=== PATIENT | male | born 1970 | race Caucasian/White ===

== ENCOUNTER 2017-09-25 12:56 | Inpatient (IN) ==
[2017-09-25] MEDS ORDERED: Isovue-370 500 ML INFUS..BTL IV ONE (13:33)
[2017-09-25] MEDS ORDERED: 0.9 % Sodium Chloride 1,000 ML IVC ONE (13:33)
[2017-09-25] MEDS ORDERED: Piperacillin/Tazobactam 3.375 GM in 0.9 % Sodium Chloride Mini Bag 100 ML IVPB ONE (13:36)
--- NOTE | 2017-09-25 13:39 | Emergency Department Note ---
Disposition Clinical Impression: Cellulitis of right thigh Disposition: Admitted As Inpatient Condition: Good Referrals: NONE,PCP [Non-Partnered Physician] - Forms: ED Satisfaction Letter General Adult HPI - General Chief complaint: ED Wound/Laceration Stated complaint: Abscess re-check Time Seen by Provider: 09/25/17 13:25 Source: patient Mode of arrival: ambulatory Limitations: no limitations Nursing Notes Reviewed: Yes Vital Signs Reviewed: Yes - History of Present Illness HPI Narrative: 47-year-old male with a past medical history of hypertension and hyperlipidemia. On Sunday (2 days ago) he presented to the emergency department due to an abscess on the right thigh with surrounding cellulitis. At that time he received a single dose of IV antibiotics, incision and drainage , and was placed on oral antibiotics. He notes he has had no improvement since then and has only had worsening. They minerva a line around the area of erythema on his leg and the erythema has passed this line. He denies having any fever. No nausea or vomiting. He only has pain with moving his leg. The redness does not extend to his groin. No prior history of abscess or cellulitis. He is not immunocompromised does not have AIDS, diabetes. Pain Scale: 2 Improves with: nothing Worsens with: movement Associated symptoms: Reports: denies other symptoms Treatments Prior to Arrival: none - Related Data Home Medications Medication Instructions Recorded Confirmed Atenolol/Chlorthalidone [Tenoretic 1 tab PO DAILY 09/25/17 09/25/17 50 Tablet] FLUoxetine HCl [Prozac] 20 mg PO DAILY 09/25/17 09/25/17 Potassium Chloride 40 meq PO DAILY 09/25/17 09/25/17 Simvastatin [Zocor] 20 mg PO DAILY 09/25/17 09/25/17 amLODIPine [Norvasc] 5 mg PO DAILY 09/25/17 09/25/17 Previous Rx's Medication Instructions Recorded Sulfamethoxazole/Trimeth DS 1 each PO BID #20 tablet 09/23/17 [Bactrim DS] cephALEXin [Keflex] 500 mg PO TID #30 capsule 09/23/17 Allergies Allergy/AdvReac Type Severity Reaction Status Date / Time No Known Allergies Allergy Verified 09/25/17 13:57 All systems ED: reviewed and negative except as stated. Constitutional: Denies: fever Cardiovascular: Denies: chest pain Respiratory: Denies: cough Gastrointestinal: Denies: abdominal pain, nausea, vomiting Musculoskeletal: Denies: back pain Neurological: Denies: headache Past Medical History - Past Medical History Medical history: Reports: hyperlipidemia, hypertension Psychiatric history: Reports: anxiety - Social History Smoking Status: Never smoker Smokeless Tobacco Status: No Alcohol use: Reports: occasionally Drug use: Reports: none Physical Exam - General Limitations: no limitations General appearance: alert, in no apparent distress - Head Head exam: atraumatic - Eye Eye exam: Present: normal appearance, PERRL - ENT ENT exam: normal exam - Neck Neck exam: Present: normal inspection - Chest Chest inspection: Present: normal inspection - Respiratory Respiratory exam: Present: normal lung sounds bilaterally. Absent: respiratory distress - Cardiovascular Cardiovascular exam: Present: regular rate, normal rhythm - Abdominal Exam Abdominal exam: Present: soft, Non-Tender - Male exam: Present: normal inspection, other (No evidence of Oma's gangrene) . Absent: scrotal swelling - Extremities Exam Extremities exam: Present: other (Right lower extremity has an incised abscess of the right medial thigh. Surrounding cellulitis approximately 7 cm. Indurated. No palpable deep abscess is palpable due to the induration. There is purulence draining from the incised abscess) - Neurological Exam Neurological exam: Present: alert, oriented X3 - Skin Skin exam: Present: warm, dry Course Course Narrative: He has failed outpatient treatment and will need to placed on IV antibiotics to cover for MRSA. We will also obtain a CT scan of the thigh to rule out deep infection for evaluation if he needs surgical consultation. No abscess on CT. No signs/symptoms of sepsis. Will admit for cellulitis. Vital Signs Temperature 98.2 F 09/25/17 12:59 Pulse Rate 74 09/25/17 12:59 Respiratory Rate 18 09/25/17 12:59 Blood Pressure 136/89 09/25/17 12:59 O2 Sat by Pulse Oximetry 96 09/25/17 12:59 Temperature 98.2 F 09/25/17 13:25 Pulse Rate 74 09/25/17 13:25 Respiratory Rate 18 09/25/17 13:25 Blood Pressure 136/89 09/25/17 13:25 O2 Sat by Pulse Oximetry 96 09/25/17 13:25 Oxygen Delivery Oxygen Delivery Room Air Medical Decision Making - Medical Records Medical records reviewed: Yes I reviewed the patient's medical records. - Lab Data Lab results reviewed: Yes I reviewed the patient's lab results. Result diagrams: 09/25/17 13:39 09/25/17 13:39 Lab Results 09/25/17 09/25/17 Range/Units 13:39 13:39 WBC 10.0 (4.3-11.1) K/mcL RBC 4.88 (4.19-5.50) M/mcL Hgb 14.9 (12.9-16.9) g/dL Hct 39.7 (37.5-50.1) % MCV 81.4 L (83.0-100.0) fL MCH 30.5 (28.0-33.3) pg MCHC 37.5 H (31.6-35.5) g/dL RDW 12.9 (11.5-14.5) % Plt Count 272 (140-400) K/mcL MPV 10.4 (9.4-12.4) fL Immature Gran % 0.5 (0-4) % Seg Neutrophils % 80.8 % Lymphocytes % 9.6 % Monocytes % 7.9 % Eosinophils % 0.8 % Basophils % 0.4 % Neutrophils # 8.1 (1.6-8.9) K/mcL Lymphocytes # 1.0 (0.6-4.6) K/mcL Monocytes # 0.8 (0.0-1.3) K/mcL Eosinophils # 0.1 (0.0-0.6) K/mcL Basophils # 0.0 (0.0-0.2) K/mcL Immature Plt Fraction 5.1 (1.1-6.1) % Sodium 138 (136-145) mEq/L Potassium 3.2 L (3.5-5.1) mEq/L Chloride 100 (98-107) mEq/L Carbon Dioxide 27 (23-29) mEq/L BUN 19 (6-20) mg/dL Creatinine 0.92 (0.70-1.30) mg/dL Est GFR ( Amer) > 60 (> 60) Est GFR (Non-Af Amer) > 60 (> 60) BUN/Creatinine Ratio 21 (6-26) Glucose 130 H (70-105) mg/dL Calculated Osmolality 290 (280-300) Calcium 9.9 (8.6-10.3) mg/dL - Radiology Data Radiology results reviewed: Yes I reviewed the patient's radiology results.
--- NOTE | 2017-09-25 13:50 | Emergency Department Note ---
Disposition Clinical Impression: Cellulitis of right thigh Disposition: Admitted As Inpatient Condition: Good Forms: ED Satisfaction Letter General Adult HPI - General Chief complaint: ED Wound/Laceration Stated complaint: Abscess re-check Time Seen by Provider: 09/25/17 13:25 Source: patient Mode of arrival: ambulatory Limitations: no limitations - History of Present Illness Pain Scale: 2 Improves with: nothing Worsens with: movement Associated symptoms: Reports: denies other symptoms Treatments Prior to Arrival: none - Related Data Previous Rx's Medication Instructions Recorded Sulfamethoxazole/Trimeth DS 1 each PO BID #20 tablet 09/23/17 [Bactrim DS] cephALEXin [Keflex] 500 mg PO TID #30 capsule 09/23/17 Allergies Allergy/AdvReac Type Severity Reaction Status Date / Time No Known Allergies Allergy Verified 09/23/17 19:38 Constitutional: Denies: fever Cardiovascular: Denies: chest pain Respiratory: Denies: cough Gastrointestinal: Denies: abdominal pain, nausea, vomiting Musculoskeletal: Denies: back pain Neurological: Denies: headache Past Medical History - Past Medical History Medical history: Reports: hyperlipidemia, hypertension Psychiatric history: Reports: anxiety - Social History Smoking Status: Never smoker Smokeless Tobacco Status: No Alcohol use: Reports: occasionally Drug use: Reports: none Physical Exam - General Limitations: no limitations General appearance: alert, in no apparent distress Course Vital Signs Temperature 98.2 F 09/25/17 12:59 Pulse Rate 74 09/25/17 12:59 Respiratory Rate 18 09/25/17 12:59 Blood Pressure 136/89 09/25/17 12:59 O2 Sat by Pulse Oximetry 96 09/25/17 12:59 Temperature 98.2 F 09/25/17 13:25 Pulse Rate 74 09/25/17 13:25 Respiratory Rate 18 09/25/17 13:25 Blood Pressure 136/89 09/25/17 13:25 O2 Sat by Pulse Oximetry 96 09/25/17 13:25 Oxygen Delivery Oxygen Delivery Room Air Attestation Statement - Attestation Attestation: I examined this patient and my medical decision-making was reviewed with the Resident Physician. I agree with the documented findings, disposition and treatment plan as described except to the extent set forth below. [id number] time provided Patient arrives complaining of worsening pain and swelling to his right thigh. He recently underwent incision and drainage for an abscess. The patient does have cellulitis on exam and a suspected unresolved abscess. He does not appear systemically toxic. He will likely require admission for parenteral antibiotics
[2017-09-25 14:26] LABS: Basophils % 0.4 %; Eosinophils # 0.1 K/mcL (0.0-0.6); Eosinophils % 0.8 %; Hematocrit 39.7 % (37.5-50.1); Hemoglobin 14.9 g/dL (12.9-16.9); Immature Granulocytes % 0.5 % (0-4); Immature Platelets 5.1 % (1.1-6.1); Lymphocytes % 9.6 %; Mean Corpuscular Hemoglobin 30.5 pg (28.0-33.3); Mean Corpuscular Volume 81.4 fL (83.0-100.0); Mean Platelet Volume 10.4 fL (9.4-12.4); Monocytes # 0.8 K/mcL (0.0-1.3); Monocytes % 7.9 %; Neutrophils # 8.1 K/mcL (1.6-8.9); Platelet Count 272 K/mcL (140-400); Red Blood Count 4.88 M/mcL (4.19-5.50); Red Cell Distribution Width 12.9 % (11.5-14.5); Segmented Neutrophils % 80.8 %
[2017-09-25 14:27] LABS: Mean Corpuscular HGB Conc 37.5 g/dL (31.6-35.5)
[2017-09-25 14:30] LABS: BUN/Creatinine Ratio 21 (6-26); Blood Urea Nitrogen 19 mg/dL (6-20); Calcium 9.9 mg/dL (8.6-10.3); Carbon Dioxide 27 mEq/L (23-29); Chloride 100 mEq/L (98-107); Glucose 130 mg/dL (70-105); Osmolality,Calculated 290 (280-300); Potassium 3.2 mEq/L (3.5-5.1); Sodium 138 mEq/L (136-145); eGFR For African Americans > 60 (> 60); eGFR For Non-African Americans > 60 (> 60)
[2017-09-25] MEDS ORDERED: Naloxone 0.4 MG/ML INJ IVP PRN (20:17)
--- NOTE | 2017-09-25 20:26 | Internal Med History&Physical ---
Date of Encounter: 09/25/17 Time of Encounter: 20:24 Internal Medicine - H&P: HPI Chief complaint: infection of right thigh History of present illness: Mr. 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 He reports developing the early onset of right thigh cellulitis a week ago Sunday with progressive erythema. He reports that the lesion initially started off as a pimple - possibly early folliculitis that has developed into a more severe local infection This led to ED presentation on Sunday where he was discharged on Keflex and Bactrim. However the cellulitis continued to progress on by mouth antibiotics leading to repeat presentation to the ER for IV antibiotics for failure of home therapy. He denies any fevers and chills. CT/CT LE RT w con IMPRESSION: 1. Skin thickening and subcutaneous stranding about the medial aspect of the right thigh most consistent with cellulitis. 2. No abscess or soft tissue gas. Past Med Surg Social Fam HX - Past Medical History Medical history: hyperlipidemia, hypertension Psychiatric history: anxiety - Past Surgical History Surgical History: herniorrhaphy - Social History Smoking Status: Never smoker Smokeless Tobacco Status: No Alcohol use: occasionally Drug use: none - Family History Mother Age: 68 Living Status: Still Living Hx Family Cardiac Disorders: Yes (HTN, HLD) Hx Family Endocrine Disorder: Yes (DM) Hx Family Neurologic Disorders: Yes (TIA) Hx Family Medical Disorders: Yes (Gout) Father Age: 68 Living Status: Still Living Hx Family Cardiac Disorders: Yes (5-way Bipass, Htn, Hld) Hx Family Endocrine Disorder: Yes (DM) Hx Family Medical Disorders: Yes (toe amputation) Internal Medicine - H&P: Meds Sulfamethoxazole/Trimeth DS [Bactrim DS] 1 each PO BID #20 tablet 09/23/17 [Rx] cephALEXin [Keflex] 500 mg PO TID #30 capsule 09/23/17 [Rx] Atenolol/Chlorthalidone [Tenoretic 50 Tablet] 1 tab PO DAILY 09/25/17 [History] FLUoxetine HCl [Prozac] 20 mg PO DAILY 09/25/17 [History] Potassium Chloride 40 meq PO DAILY 09/25/17 [History] Simvastatin [Zocor] 20 mg PO DAILY 09/25/17 [History] amLODIPine [Norvasc] 5 mg PO DAILY 09/25/17 [History] 3 Allergy/AdvReac Type Severity Reaction Status Date / Time No Known Allergies Allergy Verified 09/25/17 13:57 All Systems PM: A 10-system review of systems was performed and is negative for pertinent findings except as documented above in the HPI. Review of systems: ROS 14 point review of systems reviewed as best as possible given presentation. Pertinent positive or negative as per HPI or otherwise reviewed as negative - Constitutional Vitals: Temp Pulse Resp BP Pulse Ox 98.1 F 76 16 145/82 95 09/25/17 19:12 09/25/17 19:12 09/25/17 19:12 09/25/17 19:12 09/25/17 19:12 Exam: General - AAO x 3 Psych - Appropriate affect/speech. No agitation Eyes - MILADYS. Eye lids intact. No scleral icterus Heart - Sinus. RRR. S1 and S2 present. No added HS/murmurs appreciated. No elevated JVD appreciated. Lung - Adequate air entry b/l, No crackles/wheezes appreciated GI - Soft, non-tender. No hepatosplenomegaly/ascites. BS+ - No CVA/suprapubic tenderness or palpable bladder distension Skin - Spreading erythema, warmth of the right anterior thigh with area of central fluctuance and punctum. Warm extremities Internal Med - H&P Results - Labs CBC & Chem 7: 09/25/17 13:39 09/25/17 13:39 - Assessment and plan (1) Cellulitis of right thigh Current Visit: Yes Status: Acute Assessment and plan: IV vancomycin for now, pharmacy to assist with dosing monitor clinical course surgery to eval in a.m (2) Abscess of skin or subcutaneous tissue Current Visit: No Status: Acute Assessment and plan: discussed with Dr Ron of surgery to see if infection needs lancing Qualifiers: Site of cutaneous abscess: extremity Laterality: right Qualified Code(s) : L02.415 - Cutaneous abscess of right lower limb (3) HTN (hypertension) Current Visit: Yes Status: Acute Assessment and plan: continue norvasc. Hold thiazide for now Qualifiers: Hypertension type: essential hypertension Qualified Code(s): I10 - Essential (primary) hypertension - Time Spent With Patient Total time spent is greater than 50% in coordination of care (as documented) at patient's floor/unit and/or counseling patient:
--- NOTE | 2017-09-25 22:59 | General Surgery Consult Note ---
Date of Encounter: 09/25/17 Time of Encounter: 22:56 Assessment and Plan (1) Cellulitis of right thigh Current Visit: Yes Status: Acute 47M with cellulitis of the right thigh that failed outpatient management; afebrile, HDS diet as tolerated cont with abx regimen; recommend adding zosyn or clinda; serial exam no acute surgery guaze and tape over wound; History of Present Illness Consult date: 09/25/17 Reason for consult: other (cellulitis) History of present illness: 47 year old male PMH significant for HTN, depression who presents with right thigh cellulitis. he reports a lesion that starts as the size of a pimple, but progressivley got worse. No reports of fevers, chills, nausea, vomiting or other systemic symptoms. He did present to the ED about 2 days prior to admission where it was believed to be fluid beneath the cellulitis right where the 'pimple' began. this was lanced and was started on antibiotics, but without resoluton of symptoms. He presents again to the ED for further management. Surgery was consulted for this reason. Past Med Surg Social Fam HX - Past Medical History Medical history: hyperlipidemia, hypertension Psychiatric history: anxiety - Past Surgical History Surgical History: herniorrhaphy - Social History Smoking Status: Never smoker Smokeless Tobacco Status: No Alcohol use: occasionally Drug use: none - Family History Mother Age: 68 Living Status: Still Living Hx Family Cardiac Disorders: Yes (HTN, HLD) Hx Family Endocrine Disorder: Yes (DM) Hx Family Neurologic Disorders: Yes (TIA) Hx Family Medical Disorders: Yes (Gout) Father Age: 68 Living Status: Still Living Hx Family Cardiac Disorders: Yes (5-way Bipass, Htn, Hld) Hx Family Endocrine Disorder: Yes (DM) Hx Family Medical Disorders: Yes (toe amputation) Medications and Allergies Sulfamethoxazole/Trimeth DS [Bactrim DS] 1 each PO BID #20 tablet 09/23/17 [Rx] cephALEXin [Keflex] 500 mg PO TID #30 capsule 09/23/17 [Rx] Atenolol/Chlorthalidone [Tenoretic 50 Tablet] 1 tab PO DAILY 09/25/17 [History] FLUoxetine HCl [Prozac] 20 mg PO DAILY 09/25/17 [History] Potassium Chloride 40 meq PO DAILY 09/25/17 [History] Simvastatin [Zocor] 20 mg PO DAILY 09/25/17 [History] amLODIPine [Norvasc] 5 mg PO DAILY 09/25/17 [History] 3 Allergy/AdvReac Type Severity Reaction Status Date / Time No Known Allergies Allergy Verified 09/25/17 13:57 Review of Systems All systems PM: The remainder of the systems were reviewed and are negative General Surgery Exam Initial Vital Signs Temp Pulse Resp BP Pulse Ox 98.2 F 74 18 136/89 96 09/25/17 12:59 09/25/17 12:59 09/25/17 12:59 09/25/17 12:59 09/25/17 12:59 - General physical appearance no distress - Eyes normal ocular movement - ENT normocephalic - Neck no lymphadectomy - Respiratory normal expansion, normal respiratory effort - Cardiovascular Cardiovascular exam: Present: RRR - Abdomen Abdomen general surgery: Present: soft, non tender - Integumentary Integumentary general surgery: Present: other ((+)cellulitis along RLE; no evidence of fluctuance nor crepitus; ) - Neurologic Present: CN 2-12 grossly intact - Musculoskeletal Present: normal posture - Psychiatric Psychiatric general surgery: Present: A&Ox3 Exam Initial Vital Signs Temp Pulse Resp BP Pulse Ox 98.2 F 74 18 136/89 96 09/25/17 12:59 09/25/17 12:59 09/25/17 12:59 09/25/17 12:59 09/25/17 12:59 Results - Labs 09/25/17 13:39 09/25/17 13:39 Abnormal lab results MCV 81.4 fL (83.0-100.0) L 09/25/17 13:39 MCHC 37.5 g/dL (31.6-35.5) H 09/25/17 13:39 Potassium 3.2 mEq/L (3.5-5.1) L 09/25/17 13:39 Glucose 130 mg/dL (70-105) H 09/25/17 13:39 All other labs normal. - Imaging Additional studies: CT lower extremity: no abscess, no subcutaneous emphysema; Soft tissue thickening; Consult Discharge Plan - Plan Referrals: NONE,PCP [Primary Care Provider] -
[2017-09-26 06:49] LABS: BUN/Creatinine Ratio 15 (6-26); Blood Urea Nitrogen 14 mg/dL (6-20); Calcium 9.4 mg/dL (8.6-10.3); Carbon Dioxide 29 mEq/L (23-29); Chloride 101 mEq/L (98-107); Glucose 109 mg/dL (70-105); Osmolality,Calculated 285 (280-300); Sodium 137 mEq/L (136-145); eGFR For African Americans > 60 (> 60); eGFR For Non-African Americans > 60 (> 60)
[2017-09-26 07:45] LABS: Basophils % 0.5 %; Eosinophils # 0.1 K/mcL (0.0-0.6); Eosinophils % 1.6 %; Hematocrit 39.7 % (37.5-50.1); Hemoglobin 14.3 g/dL (12.9-16.9); Immature Granulocytes % 0.5 % (0-4); Immature Platelets 5.6 % (1.1-6.1); Lymphocytes % 13.3 %; Mean Corpuscular Hemoglobin 29.5 pg (28.0-33.3); Mean Platelet Volume 10.3 fL (9.4-12.4); Monocytes # 0.7 K/mcL (0.0-1.3); Neutrophils # 5.5 K/mcL (1.6-8.9); Platelet Count 258 K/mcL (140-400); Red Blood Count 4.84 M/mcL (4.19-5.50); Red Cell Distribution Width 13.2 % (11.5-14.5); Segmented Neutrophils % 74.1 %
--- NOTE | 2017-09-26 08:21 | General Surgery Progress Note ---
<ZacPanda bernardo - Last Filed: 09/26/17 08:16> Date of Encounter: 09/26/17 Time of Encounter: 08:00 - Assessment and Plan (1) Cellulitis of right thigh Current Visit: Yes Status: Acute Currently on zosyn and vancomycin day#2. diet as tolerated cont with abx regimen; serial exam no acute surgery guaze and tape over wound; Subjective Narrative: Patient says the pain in his R thigh is slightly improved from yesterday. He currently rates it as a 1 out of 10. He claims the redness in his leg has been the same. He denies any fever, chills, abdominal pain, nausea, or vomiting. Objective VITAL SIGNS: Reviewed. See [facility] GENERAL: no apprent distress. HEENT: [Normocephalic, PER, EOMi, oropharynx pink/moist, no JVD noted.] CV: b/l rad pulses 2+, RRR, no murmurs or gallops, no JVD RESPIRATORY: CTAB without wheezes, rales, or rhonchi ABD: soft, non-tender, no rebound/guarding/rigidity, no peritoneal signs EXTREMITY: grossly normal motor function, no pedal edema, peripheral pulses 2+ b /l NEUROLOGIC EXAM: AOx3, obeys commands, no speech deficits. PSYCHIATRIC: normal mood and affect SKIN: 2"x1" wound on inner R thigh with extensive surrounding erythema down to knee. no tenderness upon palpation. No active active bleeding, pus, or drainage upon palpation. Dry. Vital Signs - Last 8 Hours Temp Pulse Resp BP Pulse Ox 09/26/17 07:48 98.2 F 68 14 149/76 96 09/26/17 03:40 98.1 F 63 15 122/76 96 Intake and Output 09/25/17 09/26/17 09/26/17 23:59 07:59 15:59 Intake Total 400 / 770 450 / 450 Output Total 575 / 575 1050 / 1050 Balance -175 / 195 -600 / -600 Intake: IV Fluids 250 / 250 Vancocin 1,500 MG In 0.9 % 250 / 250 Sodium Chloride 250 ML @ 167 mls/hr IVPB Q12H [facility] Rx#: [id number] Oral 400 / 520 200 / 200 Output: Urine 575 / 575 1050 / 1050 Other: Weight 99.564 kg Patient Weight 09/26/17 23:59 Weight 99.564 kg - Labs 09/26/17 06:03 09/26/17 06:03 Diabetes panel 09/26/17 Range/Units 06:03 Sodium 137 (136-145) mEq/L Potassium 3.0 L (3.5-5.1) mEq/L Chloride 101 (98-107) mEq/L Carbon Dioxide 29 (23-29) mEq/L BUN 14 (6-20) mg/dL Creatinine 0.92 (0.70-1.30) mg/dL Glucose 109 H (70-105) mg/dL Calcium 9.4 (8.6-10.3) mg/dL Calcium panel 09/26/17 Range/Units 06:03 Calcium 9.4 (8.6-10.3) mg/dL Pituitary panel 09/26/17 Range/Units 06:03 Sodium 137 (136-145) mEq/L Potassium 3.0 L (3.5-5.1) mEq/L Chloride 101 (98-107) mEq/L Carbon Dioxide 29 (23-29) mEq/L BUN 14 (6-20) mg/dL Creatinine 0.92 (0.70-1.30) mg/dL Glucose 109 H (70-105) mg/dL Calcium 9.4 (8.6-10.3) mg/dL Adrenal panel 09/26/17 Range/Units 06:03 Sodium 137 (136-145) mEq/L Potassium 3.0 L (3.5-5.1) mEq/L Chloride 101 (98-107) mEq/L Carbon Dioxide 29 (23-29) mEq/L BUN 14 (6-20) mg/dL Creatinine 0.92 (0.70-1.30) mg/dL Glucose 109 H (70-105) mg/dL Calcium 9.4 (8.6-10.3) mg/dL Consult Discharge Plan - Plan Referrals: Terry Aviles DO [Resident] - 10/17/17 9:00 am <Mesfin De Paz - Last Filed: 09/26/17 15:28> Date of Encounter: 09/26/17 - Assessment and Plan (1) Cellulitis of right thigh Current Visit: Yes Status: Acute Objective Vital Signs - Last 8 Hours Temp Pulse Resp BP Pulse Ox 09/26/17 07:48 98.2 F 68 14 149/76 96 Intake and Output 09/25/17 09/26/17 09/26/17 23:59 07:59 15:59 Intake Total 400 / 770 450 / 450 Output Total 575 / 575 1050 / 1050 500 / 500 Balance -175 / 195 -600 / -600 -500 / -500 Intake: IV Fluids 250 / 250 Vancocin 1,500 MG In 0.9 % 250 / 250 Sodium Chloride 250 ML @ 167 mls/hr IVPB Q12H [facility] Rx#: [id number] Oral 400 / 520 200 / 200 Output: Urine 575 / 575 1050 / 1050 500 / 500 Other: Weight 99.564 kg Patient Weight 09/26/17 23:59 Weight 99.564 kg - Labs 09/26/17 06:03 09/26/17 06:03 Diabetes panel 09/26/17 Range/Units 06:03 Sodium 137 (136-145) mEq/L Potassium 3.0 L (3.5-5.1) mEq/L Chloride 101 (98-107) mEq/L Carbon Dioxide 29 (23-29) mEq/L BUN 14 (6-20) mg/dL Creatinine 0.92 (0.70-1.30) mg/dL Glucose 109 H (70-105) mg/dL Calcium 9.4 (8.6-10.3) mg/dL Calcium panel 09/26/17 Range/Units 06:03 Calcium 9.4 (8.6-10.3) mg/dL Pituitary panel 09/26/17 Range/Units 06:03 Sodium 137 (136-145) mEq/L Potassium 3.0 L (3.5-5.1) mEq/L Chloride 101 (98-107) mEq/L Carbon Dioxide 29 (23-29) mEq/L BUN 14 (6-20) mg/dL Creatinine 0.92 (0.70-1.30) mg/dL Glucose 109 H (70-105) mg/dL Calcium 9.4 (8.6-10.3) mg/dL Adrenal panel 09/26/17 Range/Units 06:03 Sodium 137 (136-145) mEq/L Potassium 3.0 L (3.5-5.1) mEq/L Chloride 101 (98-107) mEq/L Carbon Dioxide 29 (23-29) mEq/L BUN 14 (6-20) mg/dL Creatinine 0.92 (0.70-1.30) mg/dL Glucose 109 H (70-105) mg/dL Calcium 9.4 (8.6-10.3) mg/dL - Attending Attestation I have personally seen and examined the patient. I have reviewed pertinent labs , imaging, progress notes, including this one. I agree with the above assessment and plan and wish to include the following... erythema improving with IV antibiotics; wound with a little drainage, non purulent; recommend wet to dry dressings no acute surgery; general surgery will sign off; please feel free to contact us if there are any new questions or concerns
[2017-09-26] MEDS: amLODIPine 5 MG TABLET PO SCH (09:14)
[2017-09-26] MEDS: Piperacillin/Tazobactam 3.375 GM in 0.9 % Sodium Chloride Mini Bag 100 ML IVPB SCH ×2 (09:14→17:06)
[2017-09-26] MEDS: FLUoxetine 20 MG CAPSULE PO SCH (09:14)
--- NOTE | 2017-09-26 16:01 | Internal Med Progress Note ---
Date of Encounter: 09/26/17 Time of Encounter: 09:30 - Assessment and plan (1) Abscess of skin or subcutaneous tissue Current Visit: Yes Status: Acute Assessment and plan: Status post I&D. Surgery following. No indication for repeat surgical intervention. Continue current antibiotics. Surrounding cellulitis appears to be improving overall. Limb elevation as tolerated. Qualifiers: Site of cutaneous abscess: extremity Laterality: right Qualified Code(s) : L02.415 - Cutaneous abscess of right lower limb (2) Cellulitis of right thigh Current Visit: Yes Status: Acute Assessment and plan: Continue IV antibiotics for another day. If cellulitis continues to improve, possible discharge tomorrow. (3) HTN (hypertension) Current Visit: Yes Status: Chronic Assessment and plan: Resume home medications. Monitor blood pressure closely. Qualifiers: Hypertension type: essential hypertension Qualified Code(s): I10 - Essential (primary) hypertension - Time Spent With Patient Total time spent is greater than 50% in coordination of care (as documented) at patient's floor/unit and/or counseling patient: - Subjective Interval history: Patient is doing better today. Right thigh wound is open and draining. Redness is somewhat better compared to yesterday. No fever or chills. Was evaluated by surgery and recommended no surgical intervention at this time. - Constitutional Vitals: Temp Pulse Resp BP Pulse Ox 98.4 F 70 16 137/85 95 09/26/17 15:44 09/26/17 15:44 09/26/17 15:44 09/26/17 15:44 09/26/17 15:44 General appearance: Present: cooperative, mild distress, A&O X 3, answers questions appropriately - Neck Neck exam general surgery: Present: supple, trachea midline. Absent: lymphadenopathy - Respiratory Respiratory exam: Present: CTAB. Absent: accessory muscle use, rales, rhonchi, wheezes - Cardiovascular Cardiovascular exam: Present: RRR, +S1, +S2. Absent: diastolic murmur, gallop, rubs, systolic murmur - GI/Abdominal GI/Abdominal exam: Present: normal bowel sounds, soft, no peritoneal signs. Absent: distended, tenderness - Extremities Exam Extremities exam: Present: warm, radial pulses palpable and symmetrical. Absent : calf tenderness, cyanotic, pedal edema Additional comments: Erythema and cellulitis involving the right medial thigh improving compared to margins of initial presentation. Open wound in the center at site of I&D. - Skin Skin exam: Present: dry, erythema (As described above), intact Internal Medicine: Result - Labs CBC & Chem 7: 09/26/17 06:03 09/26/17 06:03 Labs: Short CBC 09/26/17 Range/Units 06:03 WBC 7.4 (4.3-11.1) K/mcL Hgb 14.3 (12.9-16.9) g/dL Hct 39.7 (37.5-50.1) % Plt Count 258 (140-400) K/mcL Neutrophils # 5.5 (1.6-8.9) K/mcL BMP 09/26/17 06:03 Sodium 137 Potassium 3.0 L Chloride 101 Carbon Dioxide 29 BUN 14 Creatinine 0.92 Glucose 109 H Calcium 9.4 Consult Discharge Plan - Plan Referrals: Terry Aviles DO [Resident] - 10/17/17 9:00 am
[2017-09-26] MEDS: *HR* Enoxaparin 40 MG/0.4 ML SYRINGE SQ SCH (19:50)
[2017-09-27] MEDS: Piperacillin/Tazobactam 3.375 GM in 0.9 % Sodium Chloride Mini Bag 100 ML IVPB SCH ×2 (00:11→09:03)
[2017-09-27 02:06] LABS: BUN/Creatinine Ratio 19 (6-26); Blood Urea Nitrogen 16 mg/dL (6-20); Calcium 9.1 mg/dL (8.6-10.3); Carbon Dioxide 29 mEq/L (23-29); Chloride 102 mEq/L (98-107); Glucose 100 mg/dL (70-105); Osmolality,Calculated 289 (280-300); Potassium 2.9 mEq/L (3.5-5.1); Sodium 139 mEq/L (136-145); eGFR For African Americans > 60 (> 60); eGFR For Non-African Americans > 60 (> 60)
[2017-09-27] MEDS: *HR* Enoxaparin 40 MG/0.4 ML SYRINGE SQ SCH (05:37)
[2017-09-27] MEDS ORDERED: Potassium Chloride 40 MEQ, Lidocaine 1% 2 ML in D5% in Water 500 ML IVPB ONE (07:31)
--- NOTE | 2017-09-27 08:08 | General Surgery Progress Note ---
Date of Encounter: 09/27/17 Time of Encounter: 07:45 - Assessment and Plan (1) Cellulitis of right thigh Current Visit: Yes Status: Acute Patient's wound is still draining with serosanguinous fluid. Surrounding erythema has improved considerably since yesterday. Patient denies any pain and has been afebrile. Currently on zosyn and vancomycin day#3. diet as tolerated cont with abx regimen; serial exam no acute surgery guaze and tape over wound; Subjective Narrative: Patient denies any pain in his right leg. He denies any fevers, chills, nausea, vomiting, chest pain, or shortness of breath. Objective L SIGNS: Reviewed. See [facility] GENERAL: no apparent distress HEENT: [Normocephalic, PER, EOMi, oropharynx pink/moist, no JVD noted.] CV: b/l rad pulses 2+, RRR, no murmurs or gallops, no JVD RESPIRATORY: CTAB without wheezes, rales, or rhonchi ABD: soft, non-tender, no rebound/guarding/rigidity, no peritoneal signs EXTREMITY: grossly normal motor function, no pedal edema, peripheral pulses 2+ b /l, 2"x1" wound on inner R thigh with active serosanguinous draining. No pus appreciated. Mild bleeding. Area of surrounding erythema in R leg has considerably improved since yesterday well blow demarcated markings. NEUROLOGIC EXAM: AOx3, obeys commands, no speech deficits. PSYCHIATRIC: normal mood and affect SKIN: no gross lesions, rashes, or skin changes Vital Signs - Last 8 Hours Temp Pulse Resp BP Pulse Ox 09/27/17 06:54 98.2 F 56 15 126/79 95 09/27/17 04:40 98.1 F 53 15 113/69 97 Intake and Output 09/26/17 09/27/17 09/27/17 23:59 07:59 15:59 Intake Total 100 / 100 900 / 900 Output Total 800 / 800 800 / 800 Balance -700 / -700 100 / 100 Intake: IV Fluids 100 / 100 350 / 350 Zosyn 3.375 GM In 0.9 % Sodium 100 / 100 100 / 100 Chloride (Mini-Bag +) 100 ML @ 25 mls/hr IVPB Q8HR [facility] Rx#: [id number] Vancocin 1,500 MG In 0.9 % 250 / 250 Sodium Chloride 250 ML @ 167 mls/hr IVPB Q12H [facility] Rx#: [id number] Oral 550 / 550 Output: Urine 800 / 800 800 / 800 Other: Weight 101 kg Patient Weight 09/27/17 23:59 Weight 101 kg - Labs 09/26/17 06:03 09/27/17 00:52 Diabetes panel 09/27/17 Range/Units 00:52 Sodium 139 (136-145) mEq/L Potassium 2.9 L (3.5-5.1) mEq/L Chloride 102 (98-107) mEq/L Carbon Dioxide 29 (23-29) mEq/L BUN 16 (6-20) mg/dL Creatinine 0.85 (0.70-1.30) mg/dL Glucose 100 (70-105) mg/dL Calcium 9.1 (8.6-10.3) mg/dL Calcium panel 09/27/17 Range/Units 00:52 Calcium 9.1 (8.6-10.3) mg/dL Pituitary panel 09/27/17 Range/Units 00:52 Sodium 139 (136-145) mEq/L Potassium 2.9 L (3.5-5.1) mEq/L Chloride 102 (98-107) mEq/L Carbon Dioxide 29 (23-29) mEq/L BUN 16 (6-20) mg/dL Creatinine 0.85 (0.70-1.30) mg/dL Glucose 100 (70-105) mg/dL Calcium 9.1 (8.6-10.3) mg/dL Adrenal panel 09/27/17 Range/Units 00:52 Sodium 139 (136-145) mEq/L Potassium 2.9 L (3.5-5.1) mEq/L Chloride 102 (98-107) mEq/L Carbon Dioxide 29 (23-29) mEq/L BUN 16 (6-20) mg/dL Creatinine 0.85 (0.70-1.30) mg/dL Glucose 100 (70-105) mg/dL Calcium 9.1 (8.6-10.3) mg/dL Consult Discharge Plan - Plan Referrals: Terry Aviles DO [Resident] - 10/17/17 9:00 am
[2017-09-27] MEDS: FLUoxetine 20 MG CAPSULE PO SCH (09:02)
[2017-09-27] MEDS: amLODIPine 5 MG TABLET PO SCH (09:02)
--- NOTE | 2017-09-27 10:38 | Discharge Summary ---
- NOTES TO OUTPATIENT PROVIDER Notes to Outpatient Provider: Patient admitted with cellulitis and abscess involving his right thigh. Treated with IV antibiotics. Doing better now. Will be discharged today on oral antibiotics. Does have hypokalemia which is likely due to chronic chlorthalidone use. Needs follow-up with PCP. Date of Encounter: 09/27/17 Time of Encounter: 10:36 - Discharge Diagnosis (1) Abscess of skin or subcutaneous tissue Priority: Primary Status: Acute Qualifiers: Site of cutaneous abscess: extremity Site of cutaneous abscess of extremity : lower extremity Laterality: right Qualified Code(s): L02.415 - Cutaneous abscess of right lower limb (2) Cellulitis of right thigh Priority: Secondary Status: Acute (3) HTN (hypertension) Priority: Secondary Status: Chronic Qualifiers: Hypertension type: essential hypertension Qualified Code(s): I10 - Essential (primary) hypertension Hospital course: Mr. Josue is a 47 year old male patient with history of hypertension was hospitalized here with cellulitis involving his right thigh. He had previously been seen in the ER and treated with oral antibiotics after incision and drainage was performed. However he got worse overnight and so we decided to come back to the ER. He was then hospitalized and treated with intravenous antibiotics. Surgery was also consulted. They evaluated the patient and been recommended no further surgery at this point. Patient's symptoms have improved with IV antibiotics. His wound from I&D remains open and is draining serosanguineous fluid. He has been cleared for discharge from surgical standpoint here. He will follow-up with surgery as needed. He will continue to take antibiotics to complete treatment course for his cellulitis and abscess. Discharge discussed with: patient - Time Spent with Patient Total time spent providing and/or coordinating discharge services: Less than 30 minutes (25 min) - Discharge Medications Prescriptions: Amoxicillin/Clavulanate [Augmentin] 875 mg PO BIDWM #14 tablet Doxycycline 100 mg PO BID #14 capsule Home Medications: Atenolol/Chlorthalidone [Tenoretic 50 Tablet] 1 tab PO DAILY 09/25/17 [History] FLUoxetine HCl [Prozac] 20 mg PO DAILY 09/25/17 [History] Potassium Chloride 40 meq PO DAILY 09/25/17 [History] Simvastatin [Zocor] 20 mg PO DAILY 09/25/17 [History] amLODIPine [Norvasc] 5 mg PO DAILY 09/25/17 [History] Amoxicillin/Clavulanate [Augmentin] 875 mg PO BIDWM #14 tablet 09/27/17 [Rx] Doxycycline 100 mg PO BID #14 capsule 09/27/17 [Rx] Allergies/Adverse Reactions: 3 Allergy/AdvReac Type Severity Reaction Status Date / Time No Known Allergies Allergy Verified 09/25/17 13:57 Date of admission: 09/25/17 20:17 Primary care physician: PCP NONE Consults: Surgery Discharging clinician: Main [facility] Anticipated date of discharge: 09/27/17 - Constitutional Vitals: Temp Pulse Resp BP Pulse Ox 98.3 F 62 16 133/78 95 09/27/17 10:25 09/27/17 10:25 09/27/17 10:25 09/27/17 10:25 09/27/17 10:25 General appearance: Present: cooperative, A&O X 3, no acute distress, answers questions appropriately - Neck Neck exam general surgery: Present: supple, trachea midline. Absent: lymphadenopathy - Respiratory Respiratory exam: Present: CTAB. Absent: accessory muscle use, rales, rhonchi, wheezes - Cardiovascular Cardiovascular exam: Present: RRR, +S1, +S2. Absent: diastolic murmur, gallop, rubs, systolic murmur - GI/Abdominal GI/Abdominal exam: Present: normal bowel sounds, soft, no peritoneal signs. Absent: distended, tenderness - Extremities Exam Extremities exam: Present: warm, radial pulses palpable and symmetrical. Absent : calf tenderness, cyanotic, pedal edema Additional comments: Erythema over right medial thigh improving. Open wound appears clean with no discharge today. - Neurological Exam Neurological exam: Present: CN II-XII intact, oriented X3, no focal deficits. Absent: pronater drift, facial droop, speech deficit - Skin Skin exam: Present: dry, erythema (As described above), intact - Patient Status Disposition: Home, Self-Care Condition: Good Functional capacity at discharge: independent ambulation Overall status at discharge: patient is progressing back to baseline - Discharge Instructions Instructions: Cellulitis (DC), Chronic Hypertension (DC) Follow Up With: Terry Aviles DO [Resident] - 10/17/17 9:00 am Forms: Work/School Release Additional Instructions: Keep right lower extremity elevated as much as possible. Follow-up with surgery/Wound Care as needed - Diet and Activity Activity: increase activity as tolerated Diet: low fat, low cholesterol, low salt diet
[2017-09-27 14:37] VITALS: BP 150/91
[2017-09-27] MEDS ORDERED: Aminoglycoside Consult 1 EACH MC ONE (17:01)
== END 2017-09-27 17:02 | disposition home or self-care (01) | DRG 603 ==
LOC: 3ANU 12:56 → EMEROO 12:56 → 3ANU 17:21 → SUATTDRO 20:17
PROVIDERS: ADMIT General Practice; ATTEND Internal Medicine